=== PATIENT | female | born 1980 | race Caucasian/White ===

== ENCOUNTER → 2023-09-30 11:31 | Outpatient (REF) | payer OTHER, SELFPAY | LOC: WDC 11:31 | PROVIDERS: ATTENDING PHYSICIAN Obstetrics & Gynecology; FAMILY PHYSICIAN Family Medicine | DX: Z12.31 Encounter for screening mammogram for malignant neoplasm of breast (principal) | CPT/HCPCS: 77063; 77067 ==

== ENCOUNTER → 2024-09-30 16:28 | Outpatient (REF) | payer OTHER, SELFPAY | LOC: WDC 16:28 | PROVIDERS: ATTENDING PHYSICIAN Physician Assistant Medical | DX: Z12.31 Encounter for screening mammogram for malignant neoplasm of breast (principal) | CPT/HCPCS: 77063; 77067 ==